=== PATIENT | female | born 1965 | race Caucasian/White ===

== ENCOUNTER → 2023-07-05 07:28 | Outpatient (REF) | payer OTHER, SELFPAY | LOC: EMG 07:28 | PROVIDERS: ATTENDING PHYSICIAN Student in an Organized Health Care Education/Training Program; FAMILY PHYSICIAN Family Medicine | DX: M79.672 Pain in left foot (principal); R20.0 Anesthesia of skin | CPT/HCPCS: 95886; 95910 ==

== ENCOUNTER → 2023-10-07 09:52 | Outpatient (REF) | payer OTHER, SELFPAY | LOC: WDC 09:52 | PROVIDERS: ATTENDING PHYSICIAN Internal Medicine Cardiovascular Disease | DX: Z12.31 Encounter for screening mammogram for malignant neoplasm of breast (principal) | CPT/HCPCS: 77063; 77067 ==

== ENCOUNTER → 2024-11-23 13:30 | Outpatient (REF) | payer OTHER, SELFPAY | LOC: WDC 13:30 | PROVIDERS: ATTENDING PHYSICIAN Family Medicine | DX: Z12.31 Encounter for screening mammogram for malignant neoplasm of breast (principal) | CPT/HCPCS: 77063; 77067 ==